=== PATIENT | male | born 1980 | race Caucasian/White ===

== ENCOUNTER 2021-03-10 21:33 | Emergency (ER) | payer OTHER ==
[2021-03-10] MEDS ORDERED: AUGMENTIN 875-1 EACH PO (23:17)
== END 2021-03-11 00:09 | disposition home or self-care (01) ==
LOC: FER 21:33
DX: S41.152A Open bite of left upper arm, initial encounter (principal); S60.311A Abrasion of right thumb, initial encounter; F17.200 Nicotine dependence, unspecified, uncomplicated; Z23 Encounter for immunization; W54.0XXA Bitten by dog, initial encounter; Y92.009 Unspecified place in unspecified non-institutional (private) residence as the place of occurrence of the external cause
CPT/HCPCS: 90471; 90715; 99283